=== PATIENT | female | born 1975 | race Caucasian/White ===

== ENCOUNTER 2017-02-05 11:32 | Outpatient (CLI) | payer OTHER ==
--- NOTE | 2017-02-05 15:38 | RAD ---
TWO VIEW CHEST: CLINICAL HISTORY: Cough. Fever. COMPARISON: 12/18/2015 FINDINGS: There is no evidence of consolidation, effusion, or pneumothorax. The cardiac silhouette is stable. There has been no significant interval change. IMPRESSION: No focal consolidation. POS: [facility]
== END 2017-02-05 11:33 | disposition home or self-care (01) ==
LOC: SCSRAD 11:32
PROVIDERS: ATTEND Family Medicine
DX: R05 Cough (principal)
CPT/HCPCS: 71020

== ENCOUNTER 2017-12-25 03:05 | Observation (INO) | payer OTHER ==
[2017-12-25] MEDS ORDERED: Morphine 4 MG/ML VIAL ONE ×3 (03:48→05:03)
[2017-12-25] MEDS ORDERED: diphenhydrAMINE 50 MG/ML VIAL ONE (03:48)
[2017-12-25] MEDS ORDERED: Ondansetron HCl/PF 4 MG/2 ML Vial ONE (04:02)
[2017-12-25 04:20] LABS: #Basophils 0.1 thou/uL (0.0-0.2); #Eosinphils 0.1 thou/uL (0.0-0.7); #Lymphocytes 3.1 thou/uL (1.20-3.40); #Monocytes 0.6 thou/uL (0.11-0.59); #Neutrophils 7.9 thou/uL (1.40-6.50); %Basophils 0.7 % (0.0-1.0); %Eosinophils 1.3 % (0.0-10.0); %Lymphocytes 26.1 % (21.0-51.0); %Monocytes 5.2 % (0.0-10.0); %Neutrophils 66.7 % (42.0-75.0); Hemoglobin 15.5 g/dL (12.0-16.0); Mean Corpuscular HGB CONC 34.1 g/dL (32.0-36.0); Mean Corpuscular Hemoglobin 31.9 pg (27.0-31.0); Mean Platelet Volume 8.3 fL (7.4-10.4); Platelet Count 314 thou/uL (130-400); RBC Distribution Width 11.2 % (11.5-14.5); Red Blood Cell (RBC) Count 4.87 mill/uL (4.20-5.40); White Blood Cell (WBC) Count 11.9 thou/uL (4.8-10.8)
[2017-12-25 04:30] LABS: ALT (SGPT) 11 U/L (8-55); AST (SGOT) 13 U/L (5-34); Albumin 4.1 g/dL (3.5-5.0); Alkaline Phosphatase 48 U/L (40-150); Anion Gap 12 mmol/L (10-20); BUN (Urea Nitrogen) 17 mg/dL (7.0-18.7); Bilirubin, Total 0.6 mg/dL (0.2-1.2); Calc. Creatinine Clearance 0 mL/min (70-130); Calcium 9.2 mg/dL (7.8-10.44); Carbon Dioxide 23 mmol/L (22-29); Chloride 108 mmol/L (98-107); Estimated GFR-MDRD Greater than 90; Globulin 2.8 g/dL (2.4-3.5); Glucose 105 mg/dL (70-105); Lipase 29 U/L (8-78); Potassium 4.1 mmol/L (3.5-5.1); Protein, Total 6.9 g/dL (6.0-8.3); Sodium 139 mmol/L (136-145)
[2017-12-25] MEDS ORDERED: Lidocaine Viscous Sol 2% 15 ml UD Cup ONE (04:45)
[2017-12-25] MEDS ORDERED: Mag-Al Plus 1200 MG/1200 MG/120 MG/30 ML UDCUP ONE (04:45)
[2017-12-25 05:32] LABS: CKMB 0.5 ng/mL (0-6.6); Troponin I Less than 0.010 ng/mL (< 0.028)
[2017-12-25] MEDS ORDERED: Aspirin 325 MG TAB ONE (05:49)
[2017-12-25 07:03] LABS: Mean Corpuscular Volume 93.5 fL (78.0-98.0)
[2017-12-25 07:25] LABS: Troponin I Less than 0.010 ng/mL (< 0.028)
[2017-12-25 08:03] VITALS: BMI 24.0
--- NOTE | 2017-12-25 08:20 | ULT ---
RIGHT UPPER QUADRANT ULTRASOUND: INDICATION: Epigastric and right upper quadrant abdominal pain. COMPARISON: None. TECHNIQUE: Lockett scale, color Doppler, and spectral Doppler images were obtained of the right upper quadrant of t he abdomen. FINDINGS: There is mild fatty infiltration of the liver. The main pancreatic duct is mildly prominent at 2.4 m m. The visualized pancreatic head is unremarkable. The common bile duct is normal measuring 2.7 mm. No roger intrahepatic ductal dilatation is evident. Appropriate flow is seen within the portal vei n. The gallbladder is normal-appearing. No sonographic Kimbrough's sign is reported. The right kidney measured 9.3 cm in length. IMPRESSION: 1. Mild fatty infiltration of the liver. 2. Mildly prominent main pancreatic duct measuring up to 2.4 mm. At the level of the pancreatic hea d, upper limits of normal is 3 mm. The common bile duct is normal-appearing. Visualized aspects of the pancreatic head are unremarkable. POS: [facility]
[2017-12-25] MEDS: Morphine 4 MG/ML VIAL SLOW IVP PRN ×2 (08:22→14:31)
[2017-12-25] MEDS: Ondansetron HCl/PF 4 MG/2 ML Vial IVP PRN ×3 (08:23→18:17)
--- NOTE | 2017-12-25 08:41 | RAD ---
PORTABLE CHEST 1 VIEW: DATE: 12/25/17. TIME: 5:30 a.m. HISTORY: Chest pain. FINDINGS: The heart size is enlarged. There is continued mild elevation of the right hemidiaphragm since 02/05. No lobar consolidation, pneumothorax, roger pulmonary edema, or pleural effusions are seen. IMPRESSION: No acute process. POS: [facility]
[2017-12-25] MEDS ORDERED: Ondansetron ODT 4 MG TAB SL PRN (10:00)
[2017-12-25 10:35] LABS: Troponin I Less than 0.010 ng/mL (< 0.028)
[2017-12-25] MEDS ORDERED: Albuterol Sulfate 1.25 MG/3 ML NEB NEB PRN (10:45)
--- NOTE | 2017-12-25 11:30 | HP ---
CHIEF COMPLAINT: Chest pain. HISTORY OF PRESENT ILLNESS: The patient is a 42-year-old female who reports that she has been genera lly fatigued for the last couple of weeks and then on Friday night, she began experiencing some maddy p pain in the central chest area. She states that it is bad as an 8/10 and she described it as sharp in nature. She initially tried to take Tums and then Pepcid and then drank some milk and ate some b read trying to resolve it, but it did not go away. She subsequently did have some resolution on during the day, but when she returned home from work, she developed a recurrence of the pain. At that time, she took some Mylanta and subsequently developed a generalized pruritic urticarial type rash. She reports that she has taken Mylanta in the past without any prior problems. She reports t hat in association with her pain, she did have her "asthma cough." She had no radiation or lighthead edness. She did have some associated nausea. The pain is described as positional and worse when she is lying down, but better when she is sitting or standing. She does report history of some occasion al heartburn symptoms in the past, but has never had anything like this. She has had her normal ever y 3-4 day bowel movement which is her baseline. The patient reports that she has never had hives bef ore and reaction to anything. She denies any immobility or recent travel. She also denies any speci fic fevers or chills. The patient presented to the Emergency Department with the above symptoms. There, she was treated wi th a GI cocktail and subsequently had recurrence of the urticarial lesions. She did not specifically receive any Mylanta at that time. She did get some morphine and that has improved her pain down to a 4/10. REVIEW OF SYSTEMS: In addition to those things stated above, patient reports she has some left arm n umbness and some weakness in her left thumb at times. She also has some right elbow pain which she h as been seeing physical therapy without much relief. She also reports that her neck and shoulders eugene ve been tight and "popping" since Friday. 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 She initially took Augmentin; however, that was subsequent ly changed to Cipro. The patient reports this was done because she had taken Augmentin frequently in the past and they felt as though it may not be as effective. She had no evidence of active infectio n. She reports that this is the first time she has ever had Cipro. She also has asthma and reports that her asthma symptoms have been increased and she had to go see Dr. Schneider on because of some increased asthma symptoms. She also has a history of reflex sympathetic dystrophy in her right foot. PAST SURGICAL HISTORY: Deviated septum repair, right ankle surgery, left knee surgery x2, the most r ecent being October of this year. FAMILY HISTORY: Father had hypertension and osteoporosis. Mother had osteoarthritis. SOCIAL HISTORY: The patient is a nonsmoker. She drinks socially. She is . She is F[employer] and her would be her surrogate decision maker. CURRENT MEDICATIONS: Include Flovent, amitriptyline, and albuterol. ALLERGIES: None. However, she has concerns that she may have some allergic reaction to the MYLANTA. PHYSICAL EXAMINATION: VITAL SIGNS: Temperature 97.6, pulse 76, respirations 18, O2 sat 96% on room air, BP is 132/75. GENERAL APPEARANCE: Age appropriate female, in no distress. She is awake, alert, oriented, pleasant and cooperative. HEENT: PERRL. No OP lesions. NECK: Supple and symmetric. HEART: Regular rate and rhythm without murmurs, gallops or rubs. LUNGS: Reveal minimal left basilar rales with no wheezing noted. Good air exchange. ABDOMEN: Reveals mild tenderness to palpation in the epigastrium and left abdomen. No guarding, no rebound, no masses. EXTREMITIES: Warm and dry without edema. MUSCULOSKELETAL: Reveals slight tenderness to palpation along the left parasternal border. LABORATORY DATA AND IMAGING DATA: White blood cell count 11.9, hemoglobin 15.5, platelets 314. Sodi um 139, potassium 4.1, chloride 108, CO2 is 23, BUN 17, creatinine 0.66, glucose 105, AST 13 and ALT 11. Troponin less than 0.10 x2. Albumin 4.1, lipase 29. Chest x-ray is unremarkable. Right upper quadrant ultrasound reveals some fatty liver, mild prominent main pancreatic duct measuring 2.4 mm, o therwise unremarkable. ASSESSMENT AND PLAN: 1. Chest pain, this seems to likely be noncardiac in nature. We will obtain an echocardiogram; [facility], given her recent constellation of symptoms including the recent human bite generalized fatigue. She also has a bit of an elevated white count. We will also check D-dimer, TRI positive. Follow up with CT of the chest. 2. Urticarial reaction. It is unclear what the source of this is. The patient had this developed s oon after taking Mylanta; however, she is taking it many times in the past without any reaction. Con cerned that she may be having a delayed hypersensitivity reaction to the Cipro which finished on the . 3. Leukocytosis, unclear etiology and may simply be some level of stress reaction. She does have so me left basilar rales. She has a clear chest x-ray. 4. Asthma. The patient appears to be stable presently. She has no significant wheezing or symptoms . We will continue with her usual home medications.
[2017-12-25] MEDS ORDERED: Iopamidol 370 76% 100 ML VIAL ONE (12:33)
[2017-12-25 13:12] LABS: Pregnancy Test - Urine (BHCG) Negative (Negative); Pregu Control Background? CLEAR/WHITE (CLR/WHITE); Pregu Control Bar Appear? YES (CONTROL BAR); Specific Gravity 1.022 (1.002-1.036)
--- NOTE | 2017-12-25 17:15 | CT ---
CT PULMONARY ANGIOGRAM WITH IV CONTRAST AND 3D MIP RECONSTRUCTIONS: 12/25/17 PROVIDED CLINICAL HISTORY: Chest pain. FINDINGS: Heart, pericardium and great vessels appear unremarkable. There is no evidence for central or segment al pulmonary embolus. No evidence for thoracic lymph node enlargement. Trace right pleural fluid. No evidence for pneumothorax. The lungs are free of significant opacity. The airway appears patent and of normal caliber. The visualized portions of the upper abdomen demonstrate no acute abnormality. IMPRESSION: No evidence for central or segmental pulmonary embolus. POS: [facility]
[2017-12-25] MEDS: diphenhydrAMINE 25 MG CAP PO PRN (18:16)
[2017-12-25] MEDS: Mometasone 200 MCG HFA INHALER INH SCH (19:03)
[2017-12-25] MEDS ORDERED: Amitriptyline HCl 25 MG TAB PO SCH (21:00)
[2017-12-26] MEDS: Mometasone 200 MCG HFA INHALER INH SCH (07:23)
[2017-12-26] MEDS ORDERED: Mag-Al 1200 mg/1200 mg/30 ML UDCUP PO PRN (11:57)
[2017-12-26 12:00] VITALS: BP 112/71; TEMP 98.1
[2017-12-26] MEDS: diphenhydrAMINE 25 MG CAP PO PRN (12:01)
--- NOTE | 2017-12-30 09:36 | DIS ---
DATE OF ADMISSION: 12/25/2017 DATE OF DISCHARGE: 12/26/2017 DISCHARGE DIAGNOSES: 1. Chest pain. 2. Delayed hypersensitivity reaction likely to Cipro with urticarial lesions. 3. Leukocytosis, possibly due to some steroid. 4. History of asthma. 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 She had initially been placed on some Augmentin, and then she was changed to Cipro because she had taken Augmentin several times previously and her physi rahul was afraid that it may not be as effective. She subsequently had no signs or symptoms of infect ion related to the bite. The patient reported that she was doing well, but start feeling some genera lized fatigue and malaise and then developed a fairly sharp discomfort in her chest that she felt lik e was more reflux related. She tried several things such as Tums and drinking milk to relieve it wit h no significant relief. She subsequently had persistent symptoms that were clearly positional. The patient described her pain as somewhat positional, being better when she was sitting and worse wh en she was lying down, she did have a bit of a "asthma cough" with it. She took Mylanta and did have some type of urticarial eruption which she related to taking the Mylanta. When she failed to have i mprovement she presented to the emergency department. There she received a GI cocktail and had a rec urrence of her urticarial lesions, although that GI cocktail did not contain Mylanta. She believes s he got steroids in the emergency department, although I cannot find any documentation that she did. The patient's physical exam was notable for stable vital signs and normal exam. Her labs were notabl e for a white count of 11.9, otherwise were unremarkable. Chest x-ray was unremarkable. She had a r ight upper quadrant ultrasound in the emergency room showed some fatty liver with a mild prominence o f the pancreatic duct at 2.4 mm, but was otherwise unremarkable. The patient was admitted to the hospital with atypical type chest pains. She was placed on telemetry monitoring and observation. Her telemetry remained normal sinus rhythm. She did occasionally have some mild tachycardia when up and walking, but otherwise was stable. She had a D-dimer obtained whic h was slightly over 2. She then had a CT angiogram of the chest which was unremarkable, revealed no evidence of PE, infiltrate or other anatomic abnormality. An echocardiogram was obtained which showe d normal structure and function with ejection fraction of 60-65%. Cardiac enzymes were unremarkable. The patient was slightly improving at that time. It was felt like it was likely the patient was ac tually having a delayed hypersensitivity reaction to the Cipro which was causing some GI distress as well as the urticarial reaction. With a negative workup otherwise the patient was given a couple of doses of Solu-Medrol overnight and the following morning, she felt substantially better. She was abl e to get up and ambulate without any difficulty and with that she was felt to be stable for discharge to home. DISPOSITION: The patient is discharged to home on a heart healthy diet. Her activity level is as to lerated. She will be on Claritin 10 mg p.o. b.i.d., a prednisone taper 20 mg every day for 2 days, t hen 10 mg p.o. daily for 2 days, ranitidine 75 mg b.i.d. She will continue with her albuterol, Flove nt, and amitriptyline. She is to follow up with Dr. Schneider early next week and return to the emerge ncy department should she have any problems prior to that time.
== END 2017-12-26 13:27 | disposition home or self-care (01) ==
LOC: SCSER 03:05 → 2SW 05:50
PROVIDERS: ADMIT Internal Medicine; ATTEND Internal Medicine
DX: R07.89 Other chest pain (principal); T78.49XA Other allergy, initial encounter; L50.8 Other urticaria; D72.829 Elevated white blood cell count, unspecified; J45.909 Unspecified asthma, uncomplicated; Z79.899 Other long term (current) drug therapy
CPT/HCPCS: 36415; 71045; 71275; 76705; 80053; 81025; 82553; 83690; 84484; 85025; 85379; 85652; 86140; 93005; 93306; 96361; 96374; 96375; 96376; G0378; J1200; J2270; J2405; J2920

== ENCOUNTER 2020-01-27 15:23 | Outpatient (CLI) | payer OTHER ==
--- NOTE | 2020-01-27 16:04 | RAD ---
CERVICAL SPINE: 01/27/20 For views. HISTORY: Neck pain. Cervical vertebrae maintain normal height and alignment. Mild loss of disc space at all levels. Mild degenerative changes seen with mild anterior osteophytes and mild posterior spondylosis. Alignment is preserved in neutral and flexion. Slight posterolisthesis at C4-5 and C3-4 with extensio n. IMPRESSION: Mild degenerative changes of the cervical spine as described. POS: [facility]
== END 2020-01-27 15:24 | disposition home or self-care (01) ==
LOC: SCSRAD 15:23
PROVIDERS: ATTEND Family Medicine
DX: M47.22 Other spondylosis with radiculopathy, cervical region (principal)
CPT/HCPCS: 72050

== ENCOUNTER 2021-07-30 08:18 | Outpatient (CLI) | payer OTHER | END 2021-07-30 08:19 | disposition home or self-care (01) | LOC: BICMAMMO 08:18 | PROVIDERS: ATTEND Family Medicine | DX: Z12.31 Encounter for screening mammogram for malignant neoplasm of breast (principal) | CPT/HCPCS: 77063; 77067 ==